=== PATIENT | male | born 1955 | race Caucasian/White ===

== ENCOUNTER 2021-05-05 20:17 | Inpatient (IN) ==
[2021-05-06] MEDS ORDERED: SODIUM CHLORIDE 0.9% 1,000 ML IV STA (01:03)
[2021-05-06 01:20] LABS: Albumin 3.3 G/DL (3.4-5.0); Bilirubin,Total 1.3 MG/DL (0.20-1.00); Calcium 8.8 MG/DL (8.5-10.1); Osmolality,Calculated 254.9 MOS/KG (273-304); Potassium 5.9 MMOL/L (3.5-5.1); Total Protein 7.7 G/DL (6.4-8.2)
[2021-05-06 01:22] LABS: Basophils # 0.1 10*3/uL (0.0-0.2); Basophils % 0.8 % (0.0-0.8); Eosinophils % 0.6 % (0.00-10.9); Hematocrit 40.5 VOL% (42.0-52.0); Hemoglobin 12.7 GM/DL (14.0-18.0); Immature Granulocytes % 0.7 %; Immature Granulocytes Absolute 0.05 #; Lymphocytes # 0.8 10*3/uL (1.4-4.0); Lymphocytes % 11.7 % (21.2-54.2); Mean Corpuscular HGB Conc 31.4 GM/DL (32-36); Mean Corpuscular Volume 83.3 FL (87-102); Mean Platelet Volume 10.2 FL (9.6-12.0); Monocytes % 10.3 % (1.7-12.7); Neutrophils % 75.9 % (38.7-73.9); Platelet Count 352 T/CUMM (130-400); Red Blood Count 4.86 MC/CUMM (3.8-5.5); White Blood Count 7.1 T/CUMM (4-12)
[2021-05-06] MEDS ORDERED: DEXTROSE 50% 25 GM/50 ML VIAL IV STA (01:45)
[2021-05-06] MEDS ORDERED: INSULIN REGULAR 100 UNIT/ML IV STA (01:45)
[2021-05-06] MEDS ORDERED: DEXTROSE 50% 25 GM/50 ML SYRINGE IV STA (01:46)
[2021-05-06 03:20] LABS: Bilirubin,Urine Negative (Negative); Blood, Urine Negative (Negative); Glucose,Urine (UA) 150 mg/dL (Negative); Ketones,Urine Negative (Negative); Nitrite,Urine Negative (Negative); Protein,Urine 30 MG/DL; RBC,Urine 1 /HPF (0-4); Urine Appearance CLEAR (Clear); Urine Color Yellow (Yellow); Urine Specific Gravity 1.016 (1.001-1.035)
[2021-05-06 03:23] LABS: INR 1.1; PT Patient Result 12.4 SECS (10.5-12.0); Partial Thromboplastin Time 28.8 SECS (23.8-32.1)
[2021-05-06 03:59] LABS: Barbiturates Screen,Urine Negative (Negative); Benzodiazepines Screen,Urine Negative (Negative); Cannabinoid Screen,Urine Negative (Negative); Opiate Screen,Urine Positive (Negative); Phencyclidine Screen,Urine Negative (Negative)
[2021-05-06] MEDS ORDERED: hydrALAZINE 20 MG/1 ML VIAL IV PRN (05:22)
[2021-05-06] MEDS ORDERED: ONDANSETRON 4 MG/2 ML VIAL IV PRN (05:22)
[2021-05-06] MEDS ORDERED: SODIUM CHLORIDE 0.9% 500 ML IV STA (05:28)
[2021-05-06] MEDS ORDERED: METOPROLOL TARTRATE 5 MG/5 ML VIAL IV STA (05:28)
[2021-05-06] MEDS ORDERED: SODIUM CHLORIDE 0.9% 1,000 ML IV SCH (05:30)
[2021-05-06 05:48] LABS: ABG Base Excess 2.7 MMOL/L (-2.5-2.5); ABG HCO3 26.8 MMOL/L (20-26); ABG Oxygen Saturation 97.5 % (95-100); ABG PH 7.478 (7.35-7.45); ABG PO2 93.2 MM HG (80-95); ABG TCO2 22.9 MMOL/L (23-27)
[2021-05-06 05:51] LABS: Basophils # 0.1 10*3/uL (0.0-0.2); Basophils % 0.9 % (0.0-0.8); Hematocrit 37.6 VOL% (42.0-52.0); Immature Granulocytes % 0.7 %; Immature Granulocytes Absolute 0.05 #; Lymphocytes # 0.8 10*3/uL (1.4-4.0); Lymphocytes % 11.2 % (21.2-54.2); Mean Corpuscular HGB Conc 31.9 GM/DL (32-36); Mean Corpuscular Volume 82.5 FL (87-102); Mean Platelet Volume 9.5 FL (9.6-12.0); Monocytes % 8.9 % (1.7-12.7); Neutrophils % 78.3 % (38.7-73.9); Platelet Count 314 T/CUMM (130-400); Red Blood Count 4.56 MC/CUMM (3.8-5.5); Red Cell Distribution Width 22.4 % (9.3-17.3); White Blood Count 6.9 T/CUMM (4-12)
[2021-05-06 06:02] LABS: Albumin 2.9 G/DL (3.4-5.0); Bilirubin,Total 1.1 MG/DL (0.20-1.00); Calcium 8.4 MG/DL (8.5-10.1); Osmolality,Calculated 253.8 MOS/KG (273-304); Potassium 4.8 MMOL/L (3.5-5.1); Total Protein 6.6 G/DL (6.4-8.2)
[2021-05-06] MEDS ORDERED: MAGNESIUM SULF RIDER 2 GM/50 ML PREMIX IV PRN (07:09)
[2021-05-06] MEDS ORDERED: METOPROLOL TARTRATE 5 MG/5 ML VIAL IV PRN (07:54)
[2021-05-06] MEDS: METOPROLOL TARTRATE 25 MG TABLET PO SCH ×2 (09:43→21:02)
[2021-05-06] MEDS ORDERED: INFLUENZA VIRUS VACCINE 0.5 ML SYRINGE IM ONE (19:31)
[2021-05-06] MEDS ORDERED: PNEUMOCOCCAL VACCINE (23 VALENT) 0.5 ML VIAL IM ONE (19:31)
[2021-05-06] MEDS: NICOTINE 21 MG/24 HR PATCH TRANSDERM PRN (21:02)
[2021-05-07 04:18] LABS: Basophils % 0.5 % (0.0-0.8); Hematocrit 42.4 VOL% (42.0-52.0); Hemoglobin 13.2 GM/DL (14.0-18.0); Immature Granulocytes % 0.5 %; Immature Granulocytes Absolute 0.03 #; Lymphocytes % 17.9 % (21.2-54.2); Mean Corpuscular HGB Conc 31.1 GM/DL (32-36); Mean Corpuscular Volume 84.6 FL (87-102); Mean Platelet Volume 10.2 FL (9.6-12.0); Monocytes % 9.8 % (1.7-12.7); Neutrophils % 71.3 % (38.7-73.9); Platelet Count 290 T/CUMM (130-400); Red Blood Count 5.01 MC/CUMM (3.8-5.5); Red Cell Distribution Width 22.6 % (9.3-17.3); White Blood Count 5.6 T/CUMM (4-12)
[2021-05-07 04:49] LABS: Albumin 2.5 G/DL (3.4-5.0); Bilirubin,Total 1.5 MG/DL (0.20-1.00); Calcium 8.6 MG/DL (8.5-10.1); Osmolality,Calculated 254.2 MOS/KG (273-304); Potassium 5.1 MMOL/L (3.5-5.1); Total Protein 6.5 G/DL (6.4-8.2)
[2021-05-07] MEDS ORDERED: SODIUM CHLORIDE 0.9% 1,000 ML IV ONE (07:44)
[2021-05-07] MEDS ORDERED: NITROGLYCERIN SL 0.4 MG TABLET SL ONE ×3 (09:15→09:25)
[2021-05-07] MEDS: METOPROLOL TARTRATE 25 MG TABLET PO SCH ×2 (09:21→20:30)
[2021-05-07] MEDS: ACETAMINOPHEN 325 MG TABLET PO PRN (09:23)
[2021-05-07] MEDS ORDERED: FUROSEMIDE 40 MG/4 ML VIAL IV ONE (13:14)
[2021-05-07 16:58] LABS: Calcium 8.6 MG/DL (8.5-10.1); Osmolality,Calculated 251.1 MOS/KG (273-304); Potassium 5.5 MMOL/L (3.5-5.1)
[2021-05-07] MEDS: MENTHOL/ZINC OXIDE OINT 71 GM JAR TOP SCH ×2 (17:46→22:16)
[2021-05-07] MEDS: SODIUM BICARBONATE 650 MG TABLET PO SCH ×2 (17:57→22:16)
[2021-05-07] MEDS ORDERED: LORazepam 1 MG TABLET PO PRN (17:59)
[2021-05-07] MEDS: ATORVASTATIN 40 MG TABLET PO SCH (20:29)
[2021-05-07] MEDS: APIXABAN 5 MG TABLET PO SCH (20:30)
[2021-05-07] MEDS: ALBUTEROL 2.5 MG/3 ML NEB RESP TX PRN (22:41)
[2021-05-08] MEDS: ALBUTEROL 2.5 MG/3 ML NEB RESP TX PRN (02:03)
[2021-05-08] MEDS: SODIUM BICARBONATE 650 MG TABLET PO SCH ×4 (02:45→18:00)
[2021-05-08 05:02] LABS: Basophils % 0.3 % (0.0-0.8); Eosinophils % 0.1 % (0.00-10.9); Hematocrit 43.4 VOL% (42.0-52.0); Hemoglobin 13.4 GM/DL (14.0-18.0); Immature Granulocytes % 0.5 %; Immature Granulocytes Absolute 0.04 #; Lymphocytes # 1.3 10*3/uL (1.4-4.0); Lymphocytes % 17.1 % (21.2-54.2); Mean Corpuscular HGB Conc 30.9 GM/DL (32-36); Mean Corpuscular Volume 84.3 FL (87-102); Mean Platelet Volume 10.5 FL (9.6-12.0); Monocytes % 11.7 % (1.7-12.7); Neutrophils % 70.3 % (38.7-73.9); Platelet Count 265 T/CUMM (130-400); Red Blood Count 5.15 MC/CUMM (3.8-5.5); Red Cell Distribution Width 22.5 % (9.3-17.3); White Blood Count 7.8 T/CUMM (4-12)
[2021-05-08 05:22] LABS: Calcium 8.5 MG/DL (8.5-10.1); Osmolality,Calculated 257.6 MOS/KG (273-304); Potassium 5.1 MMOL/L (3.5-5.1)
[2021-05-08] MEDS: APIXABAN 5 MG TABLET PO SCH ×2 (09:59→21:21)
[2021-05-08] MEDS: METOPROLOL TARTRATE 25 MG TABLET PO SCH ×2 (10:00→21:22)
[2021-05-08] MEDS: lisinopriL 2.5 MG TABLET PO SCH (10:00)
[2021-05-08] MEDS: MENTHOL/ZINC OXIDE OINT 71 GM JAR TOP SCH ×2 (11:49→21:21)
[2021-05-08] MEDS: LORazepam 1 MG TABLET PO PRN (12:50)
[2021-05-08] MEDS: ALBUTEROL/IPRATROPIUM 3 ML NEB RESP TX SCH ×2 (13:09→19:24)
[2021-05-08 15:17] LABS: Calcium 8.4 MG/DL (8.5-10.1); Osmolality,Calculated 256.8 MOS/KG (273-304); Potassium 5.1 MMOL/L (3.5-5.1)
[2021-05-08] MEDS: SODIUM CHLORIDE 1 GM TABLET PO SCH ×2 (17:08→20:48)
[2021-05-08] MEDS: ACETAMINOPHEN 325 MG TABLET PO PRN (21:20)
[2021-05-08] MEDS: ATORVASTATIN 40 MG TABLET PO SCH (21:22)
[2021-05-09] MEDS: ALBUTEROL/IPRATROPIUM 3 ML NEB RESP TX SCH ×4 (00:25→20:22)
[2021-05-09] MEDS: LORazepam 1 MG TABLET PO PRN ×2 (02:52→10:50)
[2021-05-09] MEDS: SODIUM CHLORIDE 1 GM TABLET PO SCH ×2 (02:54→04:38)
[2021-05-09 06:17] LABS: Basophils % 0.1 % (0.0-0.8); Eosinophils % 0.1 % (0.00-10.9); Hematocrit 38.6 VOL% (42.0-52.0); Hemoglobin 12.1 GM/DL (14.0-18.0); Immature Granulocytes Absolute 0.08 #; Lymphocytes # 0.5 10*3/uL (1.4-4.0); Lymphocytes % 6.8 % (21.2-54.2); Mean Corpuscular HGB Conc 31.3 GM/DL (32-36); Mean Corpuscular Volume 83.9 FL (87-102); Mean Platelet Volume 10.6 FL (9.6-12.0); Monocytes % 2.1 % (1.7-12.7); Neutrophils % 89.9 % (38.7-73.9); Platelet Count 281 T/CUMM (130-400); Red Cell Distribution Width 22.3 % (9.3-17.3); White Blood Count 7.8 T/CUMM (4-12)
[2021-05-09 06:33] LABS: Calcium 8.5 MG/DL (8.5-10.1); Osmolality,Calculated 266.2 MOS/KG (273-304); Potassium 4.7 MMOL/L (3.5-5.1)
[2021-05-09] MEDS: MENTHOL/ZINC OXIDE OINT 71 GM JAR TOP SCH ×2 (08:30→21:51)
[2021-05-09] MEDS: lisinopriL 2.5 MG TABLET PO SCH (09:11)
[2021-05-09] MEDS: METOPROLOL TARTRATE 25 MG TABLET PO SCH ×2 (09:11→21:42)
[2021-05-09] MEDS: APIXABAN 5 MG TABLET PO SCH ×2 (09:12→21:42)
[2021-05-09] MEDS: ACETAMINOPHEN 325 MG TABLET PO PRN (21:42)
[2021-05-09] MEDS: ATORVASTATIN 40 MG TABLET PO SCH (21:42)
[2021-05-10] MEDS: ALBUTEROL/IPRATROPIUM 3 ML NEB RESP TX SCH ×4 (00:41→20:13)
[2021-05-10 03:40] LABS: Basophils % 0.1 % (0.0-0.8); Hematocrit 40.3 VOL% (42.0-52.0); Hemoglobin 12.2 GM/DL (14.0-18.0); Immature Granulocytes % 0.7 %; Immature Granulocytes Absolute 0.07 #; Lymphocytes # 0.7 10*3/uL (1.4-4.0); Lymphocytes % 6.6 % (21.2-54.2); Mean Corpuscular HGB Conc 30.3 GM/DL (32-36); Mean Platelet Volume 10.5 FL (9.6-12.0); Monocytes % 4.6 % (1.7-12.7); Platelet Count 292 T/CUMM (130-400); Red Blood Count 4.63 MC/CUMM (3.8-5.5); Red Cell Distribution Width 22.9 % (9.3-17.3); White Blood Count 10.8 T/CUMM (4-12)
[2021-05-10 03:40] LABS: Calcium 8.8 MG/DL (8.5-10.1); Osmolality,Calculated 264.2 MOS/KG (273-304); Potassium 5.3 MMOL/L (3.5-5.1)
[2021-05-10] MEDS ORDERED: SODIUM POLYSTYRENE SULFATE 15 GM/60 ML BOTTLE PO STA (04:00)
[2021-05-10] MEDS: SODIUM CHLORIDE 0.9% 1,000 ML IV SCH ×2 (04:13→05:30)
[2021-05-10] MEDS ORDERED: lisinopriL 5 MG TABLET PO SCH (09:00)
[2021-05-10] MEDS ORDERED: SODIUM CHLORIDE 0.9% 1,000 ML IV SCH (09:00)
[2021-05-10] MEDS: APIXABAN 5 MG TABLET PO SCH ×2 (09:41→20:22)
[2021-05-10] MEDS: MENTHOL/ZINC OXIDE OINT 71 GM JAR TOP SCH ×2 (09:41→20:21)
[2021-05-10] MEDS: METOPROLOL TARTRATE 25 MG TABLET PO SCH ×2 (09:41→21:42)
[2021-05-10] MEDS ORDERED: POLYETHYLENE GLYCOL POWDER 17 GM PACK PO PRN (10:34)
[2021-05-10] MEDS: DOCUSATE SODIUM 100 MG CAPSULE PO SCH ×2 (10:55→20:22)
[2021-05-10] MEDS: FUROSEMIDE 80 MG TABLET PO SCH (10:55)
[2021-05-10] MEDS ORDERED: PNEUMOCOCCAL VACCINE (23 VALENT) 0.5 ML VIAL IM ONE (11:00)
[2021-05-10] MEDS ORDERED: INFLUENZA VIRUS VACCINE 0.5 ML SYRINGE IM ONE (11:00)
[2021-05-10 14:09] LABS: Osmolality,Calculated 257.8 MOS/KG (273-304); Potassium 5.5 MMOL/L (3.5-5.1)
[2021-05-10] MEDS: ATORVASTATIN 40 MG TABLET PO SCH (20:22)
[2021-05-11] MEDS: ALBUTEROL/IPRATROPIUM 3 ML NEB RESP TX SCH ×4 (02:45→18:55)
[2021-05-11 07:35] LABS: Basophils % 0.1 % (0.0-0.8); Eosinophils % 0.1 % (0.00-10.9); Hematocrit 42.9 VOL% (42.0-52.0); Hemoglobin 13.1 GM/DL (14.0-18.0); Immature Granulocytes % 0.5 %; Immature Granulocytes Absolute 0.08 #; Lymphocytes # 1.3 10*3/uL (1.4-4.0); Lymphocytes % 8.8 % (21.2-54.2); Mean Corpuscular HGB Conc 30.5 GM/DL (32-36); Mean Platelet Volume 10.7 FL (9.6-12.0); Monocytes % 7.3 % (1.7-12.7); NRBC # 0.04 10*3/uL; Neutrophils % 83.2 % (38.7-73.9); Platelet Count 353 T/CUMM (130-400); Red Blood Count 4.99 MC/CUMM (3.8-5.5); Red Cell Distribution Width 22.7 % (9.3-17.3); White Blood Count 15.1 T/CUMM (4-12)
[2021-05-11 07:55] LABS: Platelet Estimate Normal
[2021-05-11 07:56] LABS: Anisocytosis 1+; Burr Cells Few; Macrocytosis 1+; Poikilocytosis Slight
[2021-05-11 07:59] LABS: Albumin 3.1 G/DL (3.4-5.0); Bilirubin,Total 2.1 MG/DL (0.20-1.00); Calcium 9.1 MG/DL (8.5-10.1); Osmolality,Calculated 260.5 MOS/KG (273-304); Potassium 4.7 MMOL/L (3.5-5.1); Total Protein 7.6 G/DL (6.4-8.2)
[2021-05-11] MEDS: carvediloL 12.5 MG TABLET PO SCH ×2 (10:08→20:47)
[2021-05-11] MEDS: DOCUSATE SODIUM 100 MG CAPSULE PO SCH ×2 (10:08→20:47)
[2021-05-11] MEDS: APIXABAN 5 MG TABLET PO SCH ×2 (10:08→20:46)
[2021-05-11] MEDS: FUROSEMIDE 80 MG TABLET PO SCH (10:08)
[2021-05-11] MEDS: MENTHOL/ZINC OXIDE OINT 71 GM JAR TOP SCH ×2 (10:11→20:46)
[2021-05-11] MEDS: LORazepam 1 MG TABLET PO PRN ×2 (10:50→20:47)
[2021-05-11] MEDS: PIPERACILLIN/TAZOBACTAM 3,375 MG in SODIUM CHLORIDE 0.9% 100 ML IV SCH (17:13)
[2021-05-11] MEDS: guaiFENesin 200 MG/10 ML UDCUP PO PRN (19:59)
[2021-05-11] MEDS: ATORVASTATIN 40 MG TABLET PO SCH (20:47)
[2021-05-12] MEDS: PIPERACILLIN/TAZOBACTAM 3,375 MG in SODIUM CHLORIDE 0.9% 100 ML IV SCH ×3 (01:10→18:06)
[2021-05-12] MEDS: ALBUTEROL/IPRATROPIUM 3 ML NEB RESP TX SCH ×4 (01:21→20:15)
[2021-05-12] MEDS: guaiFENesin 200 MG/10 ML UDCUP PO PRN ×2 (02:38→13:00)
[2021-05-12 06:02] LABS: Basophils % 0.1 % (0.0-0.8); Eosinophils % 0.1 % (0.00-10.9); Hematocrit 40.3 VOL% (42.0-52.0); Hemoglobin 12.7 GM/DL (14.0-18.0); Immature Granulocytes % 0.5 %; Immature Granulocytes Absolute 0.06 #; Lymphocytes % 8.7 % (21.2-54.2); Mean Corpuscular HGB Conc 31.5 GM/DL (32-36); Mean Corpuscular Volume 83.3 FL (87-102); Mean Platelet Volume 10.1 FL (9.6-12.0); Monocytes % 6.7 % (1.7-12.7); NRBC # 0.05 10*3/uL; Neutrophils % 83.9 % (38.7-73.9); Platelet Count 336 T/CUMM (130-400); Red Blood Count 4.84 MC/CUMM (3.8-5.5); White Blood Count 11.9 T/CUMM (4-12)
[2021-05-12 06:18] LABS: Albumin 2.7 G/DL (3.4-5.0); Bilirubin,Total 1.9 MG/DL (0.20-1.00); Calcium 8.6 MG/DL (8.5-10.1); Osmolality,Calculated 267.1 MOS/KG (273-304); Potassium 3.7 MMOL/L (3.5-5.1); Total Protein 6.5 G/DL (6.4-8.2)
[2021-05-12] MEDS: METOPROLOL TARTRATE 25 MG TABLET PO SCH (06:27)
[2021-05-12] MEDS ORDERED: MAGNESIUM SULF RIDER 4 GM/100 ML PREMIX IV ONE (07:44)
[2021-05-12] MEDS: APIXABAN 5 MG TABLET PO SCH ×2 (09:47→21:13)
[2021-05-12] MEDS: LACTULOSE 20 GM/30 ML UDCUP PO SCH ×2 (09:47→21:13)
[2021-05-12] MEDS: DOCUSATE SODIUM 100 MG CAPSULE PO SCH ×2 (09:47→21:13)
[2021-05-12] MEDS: FUROSEMIDE 80 MG TABLET PO SCH (09:47)
[2021-05-12] MEDS: carvediloL 12.5 MG TABLET PO SCH ×2 (09:47→21:13)
[2021-05-12] MEDS: MENTHOL/ZINC OXIDE OINT 71 GM JAR TOP SCH ×2 (09:48→21:15)
[2021-05-12] MEDS ORDERED: FUROSEMIDE 40 MG/4 ML VIAL IV ONE (11:40)
[2021-05-12 12:02] LABS: Albumin 2.7 G/DL (3.4-5.0); Bilirubin,Direct 0.68 MG/DL (0.0-0.20); Bilirubin,Indirect 0.5 MG/DL (0.0-1.0); Bilirubin,Total 1.2 MG/DL (0.20-1.00); Total Protein 6.7 G/DL (6.4-8.2)
[2021-05-12 13:03] LABS: Hepatitis B Surface Ag Quant < 0.10 Index; Hepatitis B Surface Ag Result Non-Reactive (NonReactive); Hepatitis C Virus Ab Result Non-Reactive (NonReactive)
[2021-05-12 14:02] LABS: Barbiturates Screen,Urine Negative (Negative); Benzodiazepines Screen,Urine Negative (Negative); Cannabinoid Screen,Urine Negative (Negative); Opiate Screen,Urine Positive (Negative); Phencyclidine Screen,Urine Negative (Negative)
[2021-05-12 14:19] LABS: HIV Antigen/Antibody Result Nonreactive (Nonreactive)
[2021-05-12] MEDS ORDERED: NALOXONE 0.4 MG/ML VIAL IV ONE (16:50)
[2021-05-12] MEDS: ATORVASTATIN 40 MG TABLET PO SCH (21:13)
[2021-05-13] MEDS: PIPERACILLIN/TAZOBACTAM 3,375 MG in SODIUM CHLORIDE 0.9% 100 ML IV SCH ×4 (00:10→23:22)
[2021-05-13] MEDS: LORazepam 1 MG TABLET PO PRN ×2 (01:15→18:07)
[2021-05-13] MEDS: ALBUTEROL/IPRATROPIUM 3 ML NEB RESP TX SCH ×4 (01:40→19:53)
[2021-05-13] MEDS: ZALEPLON 5 MG CAPSULE PO PRN ×2 (02:13→20:35)
[2021-05-13] MEDS: ACETAMINOPHEN 325 MG TABLET PO PRN (02:15)
[2021-05-13] MEDS: NICOTINE 21 MG/24 HR PATCH TRANSDERM PRN (05:00)
[2021-05-13 06:03] LABS: Basophils % 0.1 % (0.0-0.8); Eosinophils % 0.3 % (0.00-10.9); Hematocrit 40.1 VOL% (42.0-52.0); Hemoglobin 12.5 GM/DL (14.0-18.0); Immature Granulocytes % 0.9 %; Lymphocytes # 1.1 10*3/uL (1.4-4.0); Lymphocytes % 8.9 % (21.2-54.2); Mean Corpuscular HGB Conc 31.2 GM/DL (32-36); Mean Corpuscular Volume 83.4 FL (87-102); Mean Platelet Volume 10.5 FL (9.6-12.0); Monocytes % 5.5 % (1.7-12.7); NRBC # 0.12 10*3/uL; Neutrophils % 84.3 % (38.7-73.9); Platelet Count 332 T/CUMM (130-400); Red Blood Count 4.81 MC/CUMM (3.8-5.5); White Blood Count 11.7 T/CUMM (4-12)
[2021-05-13 06:34] LABS: Albumin 2.8 G/DL (3.4-5.0); Bilirubin,Total 1.5 MG/DL (0.20-1.00); Calcium 8.7 MG/DL (8.5-10.1); Osmolality,Calculated 269.1 MOS/KG (273-304); Potassium 3.7 MMOL/L (3.5-5.1); Total Protein 6.9 G/DL (6.4-8.2)
[2021-05-13] MEDS: DOCUSATE SODIUM 100 MG CAPSULE PO SCH ×2 (09:41→20:29)
[2021-05-13] MEDS: FUROSEMIDE 80 MG TABLET PO SCH (09:41)
[2021-05-13] MEDS: LACTULOSE 20 GM/30 ML UDCUP PO SCH ×2 (09:41→20:29)
[2021-05-13] MEDS: carvediloL 12.5 MG TABLET PO SCH ×2 (09:41→20:29)
[2021-05-13] MEDS: APIXABAN 5 MG TABLET PO SCH ×2 (09:41→20:29)
[2021-05-13] MEDS: MENTHOL/ZINC OXIDE OINT 71 GM JAR TOP SCH ×2 (09:41→20:32)
[2021-05-13] MEDS: ATORVASTATIN 40 MG TABLET PO SCH (20:29)
[2021-05-14] MEDS: ALBUTEROL/IPRATROPIUM 3 ML NEB RESP TX SCH ×4 (01:35→20:16)
[2021-05-14] MEDS ORDERED: ZALEPLON 5 MG CAPSULE PO ONE (02:30)
[2021-05-14] MEDS: LORazepam 1 MG TABLET PO PRN ×2 (08:43→20:37)
[2021-05-14] MEDS: carvediloL 12.5 MG TABLET PO SCH ×2 (08:43→20:38)
[2021-05-14] MEDS: FUROSEMIDE 80 MG TABLET PO SCH (08:43)
[2021-05-14] MEDS: LACTULOSE 20 GM/30 ML UDCUP PO SCH ×2 (08:43→22:16)
[2021-05-14] MEDS: DOCUSATE SODIUM 100 MG CAPSULE PO SCH ×2 (08:43→22:16)
[2021-05-14] MEDS: APIXABAN 5 MG TABLET PO SCH ×2 (08:43→20:38)
[2021-05-14] MEDS: PIPERACILLIN/TAZOBACTAM 3,375 MG in SODIUM CHLORIDE 0.9% 100 ML IV SCH ×2 (08:45→16:10)
[2021-05-14] MEDS: MENTHOL/ZINC OXIDE OINT 71 GM JAR TOP SCH ×2 (08:48→22:16)
[2021-05-14 10:07] LABS: Basophils % 0.1 % (0.0-0.8); Eosinophils % 0.2 % (0.00-10.9); Hematocrit 39.7 VOL% (42.0-52.0); Hemoglobin 12.3 GM/DL (14.0-18.0); Immature Granulocytes % 0.8 %; Lymphocytes # 1.2 10*3/uL (1.4-4.0); Lymphocytes % 9.9 % (21.2-54.2); Mean Corpuscular Volume 83.6 FL (87-102); Mean Platelet Volume 11.1 FL (9.6-12.0); Monocytes % 6.1 % (1.7-12.7); NRBC # 0.18 10*3/uL; Neutrophils % 82.9 % (38.7-73.9); Platelet Count 328 T/CUMM (130-400); Red Blood Count 4.75 MC/CUMM (3.8-5.5); White Blood Count 12.1 T/CUMM (4-12)
[2021-05-14 10:32] LABS: Albumin 2.7 G/DL (3.4-5.0); Bilirubin,Total 1.1 MG/DL (0.20-1.00); Osmolality,Calculated 268.5 MOS/KG (273-304); Potassium 3.9 MMOL/L (3.5-5.1); Total Protein 6.6 G/DL (6.4-8.2)
[2021-05-14] MEDS: ZALEPLON 5 MG CAPSULE PO PRN (20:38)
[2021-05-14] MEDS: ATORVASTATIN 40 MG TABLET PO SCH (20:38)
[2021-05-15] MEDS: PIPERACILLIN/TAZOBACTAM 3,375 MG in SODIUM CHLORIDE 0.9% 100 ML IV SCH ×3 (00:40→16:18)
[2021-05-15] MEDS: ALBUTEROL/IPRATROPIUM 3 ML NEB RESP TX SCH ×4 (01:07→19:20)
[2021-05-15 06:31] LABS: Basophils % 0.1 % (0.0-0.8); Hematocrit 37.4 VOL% (42.0-52.0); Hemoglobin 11.8 GM/DL (14.0-18.0); Immature Granulocytes % 0.9 %; Immature Granulocytes Absolute 0.12 #; Mean Corpuscular HGB Conc 31.6 GM/DL (32-36); Mean Corpuscular Volume 82.7 FL (87-102); Mean Platelet Volume 11.2 FL (9.6-12.0); Monocytes % 6.3 % (1.7-12.7); NRBC # 0.37 10*3/uL; Neutrophils % 84.7 % (38.7-73.9); Platelet Count 349 T/CUMM (130-400); Red Blood Count 4.52 MC/CUMM (3.8-5.5); Red Cell Distribution Width 21.5 % (9.3-17.3); White Blood Count 12.7 T/CUMM (4-12)
[2021-05-15 06:49] LABS: Albumin 2.5 G/DL (3.4-5.0); Bilirubin,Total 1.4 MG/DL (0.20-1.00); Osmolality,Calculated 267.6 MOS/KG (273-304); Potassium 3.9 MMOL/L (3.5-5.1)
[2021-05-15] MEDS: FUROSEMIDE 80 MG TABLET PO SCH (08:55)
[2021-05-15] MEDS: LACTULOSE 20 GM/30 ML UDCUP PO SCH ×2 (08:55→20:15)
[2021-05-15] MEDS: APIXABAN 5 MG TABLET PO SCH ×2 (08:55→20:15)
[2021-05-15] MEDS: DOCUSATE SODIUM 100 MG CAPSULE PO SCH ×2 (08:55→20:14)
[2021-05-15] MEDS: carvediloL 12.5 MG TABLET PO SCH ×2 (08:55→20:14)
[2021-05-15] MEDS: MENTHOL/ZINC OXIDE OINT 71 GM JAR TOP SCH ×2 (08:56→20:16)
[2021-05-15] MEDS: LORazepam 1 MG TABLET PO PRN (13:56)
[2021-05-15] MEDS: ACETAMINOPHEN 325 MG TABLET PO PRN (13:57)
[2021-05-15 17:31] LABS: Bilirubin,Urine Negative (Negative); Blood, Urine Negative (Negative); Glucose,Urine (UA) Negative (Negative); Hyaline Casts,Urine 1 /LPF (0-3); Ketones,Urine Negative (Negative); Nitrite,Urine Negative (Negative); Protein,Urine Negative; RBC,Urine 1 /HPF (0-4); Urine Appearance CLEAR (Clear); Urine Color Yellow (Yellow); Urine Specific Gravity 1.019 (1.001-1.035); Urine Urobilinogen < 2.0 EU/DL (<2.0)
[2021-05-15 17:39] LABS: Barbiturates Screen,Urine Negative (Negative); Benzodiazepines Screen,Urine Negative (Negative); Cannabinoid Screen,Urine Negative (Negative); Opiate Screen,Urine Negative (Negative); Phencyclidine Screen,Urine Negative (Negative)
[2021-05-15] MEDS: ATORVASTATIN 40 MG TABLET PO SCH (20:14)
[2021-05-15] MEDS: ZALEPLON 5 MG CAPSULE PO PRN (20:20)
[2021-05-16] MEDS: PIPERACILLIN/TAZOBACTAM 3,375 MG in SODIUM CHLORIDE 0.9% 100 ML IV SCH ×3 (00:14→17:11)
[2021-05-16] MEDS: ALBUTEROL/IPRATROPIUM 3 ML NEB RESP TX SCH ×4 (01:10→22:48)
[2021-05-16] MEDS: LORazepam 0.5 MG TABLET PO PRN ×3 (02:13→18:45)
[2021-05-16 05:45] LABS: Albumin 2.5 G/DL (3.4-5.0); Bilirubin,Total 1.5 MG/DL (0.20-1.00); Calcium 8.9 MG/DL (8.5-10.1); Osmolality,Calculated 270.4 MOS/KG (273-304); Potassium 3.7 MMOL/L (3.5-5.1); Total Protein 6.2 G/DL (6.4-8.2)
[2021-05-16] MEDS: ACETAMINOPHEN 325 MG TABLET PO PRN ×2 (06:42→17:15)
[2021-05-16] MEDS ORDERED: LORazepam 0.5 MG TABLET PO ONE (08:08)
[2021-05-16] MEDS: FUROSEMIDE 80 MG TABLET PO SCH (08:13)
[2021-05-16] MEDS: APIXABAN 5 MG TABLET PO SCH ×2 (08:13→20:39)
[2021-05-16] MEDS: carvediloL 12.5 MG TABLET PO SCH ×2 (08:13→20:39)
[2021-05-16] MEDS: DOCUSATE SODIUM 100 MG CAPSULE PO SCH ×2 (08:15→20:39)
[2021-05-16] MEDS: LACTULOSE 20 GM/30 ML UDCUP PO SCH ×2 (08:15→20:39)
[2021-05-16] MEDS: MENTHOL/ZINC OXIDE OINT 71 GM JAR TOP SCH ×2 (08:19→20:39)
[2021-05-16 09:51] LABS: Basophils % 0.1 % (0.0-0.8); Eosinophils % 0.1 % (0.00-10.9); Hematocrit 38.5 VOL% (42.0-52.0); Hemoglobin 11.9 GM/DL (14.0-18.0); Immature Granulocytes % 0.7 %; Immature Granulocytes Absolute 0.08 #; Lymphocytes # 0.7 10*3/uL (1.4-4.0); Lymphocytes % 6.4 % (21.2-54.2); Mean Corpuscular HGB Conc 30.9 GM/DL (32-36); Mean Corpuscular Volume 83.7 FL (87-102); Mean Platelet Volume 11.5 FL (9.6-12.0); Monocytes % 9.9 % (1.7-12.7); NRBC # 0.46 10*3/uL; Neutrophils % 82.8 % (38.7-73.9); Platelet Count 326 T/CUMM (130-400); Red Cell Distribution Width 21.3 % (9.3-17.3); White Blood Count 11.3 T/CUMM (4-12)
[2021-05-16] MEDS: busPIRone 10 MG TABLET PO SCH ×2 (12:13→20:39)
[2021-05-16] MEDS ORDERED: FLUTICASONE 50 MCG NASAL SPRAY 16 GM BOTTLE BOTH NARES SCH (14:27)
[2021-05-16] MEDS: FLUTICASONE 50 MCG NASAL SPRAY 16 GM BOTTLE BOTH NARES SCH ×2 (15:30→20:40)
[2021-05-16] MEDS: ATORVASTATIN 40 MG TABLET PO SCH (20:39)
[2021-05-16] MEDS: ZALEPLON 5 MG CAPSULE PO PRN (20:39)
[2021-05-17] MEDS: PIPERACILLIN/TAZOBACTAM 3,375 MG in SODIUM CHLORIDE 0.9% 100 ML IV SCH ×3 (00:28→16:18)
[2021-05-17] MEDS: ALBUTEROL/IPRATROPIUM 3 ML NEB RESP TX SCH ×5 (03:08→19:50)
[2021-05-17 06:21] LABS: Basophils % 0.1 % (0.0-0.8); Eosinophils % 0.1 % (0.00-10.9); Hematocrit 40.2 VOL% (42.0-52.0); Hemoglobin 12.4 GM/DL (14.0-18.0); Immature Granulocytes % 0.9 %; Immature Granulocytes Absolute 0.14 #; Lymphocytes # 0.9 10*3/uL (1.4-4.0); Lymphocytes % 5.8 % (21.2-54.2); Mean Corpuscular HGB Conc 30.8 GM/DL (32-36); Mean Corpuscular Volume 84.5 FL (87-102); Mean Platelet Volume 10.9 FL (9.6-12.0); Monocytes % 7.6 % (1.7-12.7); NRBC # 0.48 10*3/uL; Neutrophils % 85.5 % (38.7-73.9); Platelet Count 321 T/CUMM (130-400); Red Blood Count 4.76 MC/CUMM (3.8-5.5); Red Cell Distribution Width 21.6 % (9.3-17.3); White Blood Count 14.9 T/CUMM (4-12)
[2021-05-17 06:46] LABS: Albumin 2.7 G/DL (3.4-5.0); Calcium 8.8 MG/DL (8.5-10.1); Osmolality,Calculated 269.2 MOS/KG (273-304); Potassium 3.7 MMOL/L (3.5-5.1); Total Protein 6.7 G/DL (6.4-8.2)
[2021-05-17] MEDS: LACTULOSE 20 GM/30 ML UDCUP PO SCH ×2 (08:47→23:12)
[2021-05-17] MEDS: carvediloL 12.5 MG TABLET PO SCH ×2 (08:50→21:12)
[2021-05-17] MEDS: MENTHOL/ZINC OXIDE OINT 71 GM JAR TOP SCH ×2 (08:50→21:12)
[2021-05-17] MEDS: FUROSEMIDE 80 MG TABLET PO SCH (08:50)
[2021-05-17] MEDS: DOCUSATE SODIUM 100 MG CAPSULE PO SCH ×2 (08:50→21:12)
[2021-05-17] MEDS: APIXABAN 5 MG TABLET PO SCH ×2 (08:50→21:12)
[2021-05-17] MEDS: busPIRone 10 MG TABLET PO SCH ×2 (08:50→21:12)
[2021-05-17] MEDS: LORazepam 0.5 MG TABLET PO PRN ×2 (08:50→18:42)
[2021-05-17] MEDS: FLUTICASONE 50 MCG NASAL SPRAY 16 GM BOTTLE BOTH NARES SCH ×2 (08:54→21:13)
[2021-05-17] MEDS: HydrOXYzine PAMOATE 25 MG CAPSULE PO PRN ×2 (10:44→18:42)
[2021-05-17] MEDS: ATORVASTATIN 40 MG TABLET PO SCH (21:13)
[2021-05-18] MEDS: PIPERACILLIN/TAZOBACTAM 3,375 MG in SODIUM CHLORIDE 0.9% 100 ML IV SCH ×3 (00:03→17:40)
[2021-05-18] MEDS: ALBUTEROL/IPRATROPIUM 3 ML NEB RESP TX SCH ×3 (00:48→13:55)
[2021-05-18 06:34] LABS: Basophils % 0.1 % (0.0-0.8); Hematocrit 39.1 VOL% (42.0-52.0); Immature Granulocytes % 1.4 %; Immature Granulocytes Absolute 0.21 #; Lymphocytes # 0.9 10*3/uL (1.4-4.0); Mean Corpuscular HGB Conc 30.7 GM/DL (32-36); Mean Platelet Volume 11.1 FL (9.6-12.0); Monocytes % 6.4 % (1.7-12.7); Neutrophils % 86.1 % (38.7-73.9); Platelet Count 302 T/CUMM (130-400); Red Blood Count 4.71 MC/CUMM (3.8-5.5); Red Cell Distribution Width 21.5 % (9.3-17.3); White Blood Count 15.5 T/CUMM (4-12)
[2021-05-18] MEDS: FUROSEMIDE 80 MG TABLET PO SCH (09:50)
[2021-05-18] MEDS: DOCUSATE SODIUM 100 MG CAPSULE PO SCH (09:50)
[2021-05-18] MEDS: busPIRone 10 MG TABLET PO SCH (09:50)
[2021-05-18] MEDS: carvediloL 12.5 MG TABLET PO SCH (09:50)
[2021-05-18] MEDS: APIXABAN 5 MG TABLET PO SCH (09:50)
[2021-05-18] MEDS: FLUTICASONE 50 MCG NASAL SPRAY 16 GM BOTTLE BOTH NARES SCH (09:51)
[2021-05-18] MEDS: MENTHOL/ZINC OXIDE OINT 71 GM JAR TOP SCH (09:57)
[2021-05-18] MEDS: LACTULOSE 20 GM/30 ML UDCUP PO SCH (10:10)
[2021-05-18 15:54] VITALS: BP 91/60
== END 2021-05-18 17:20 | disposition home or self-care (01) | DRG 918 ==
LOC: N.ED 20:17 → N.EDINP 05-06 05:22 → SUATTDRO 05-06 05:22 → N.ICU 05-06 07:23 → N.2E 05-09 16:41 → N.4E 05-10 14:56 → N.2E 05-10 15:40
PROVIDERS: ADMIT Internal Medicine; ATTEND Internal Medicine Geriatric Medicine